=== PATIENT | female | born 1985 | race Caucasian/White ===

== ENCOUNTER 2022-02-22 12:30 | Emergency (ER) | payer SELFPAY ==
[~2022-02-22] VITALS: Ht 154.9 cm; Wt 68.2 kg
[~2022-02-22 12:30] MED LIST: ARIP400S3 IM; HYDR-4383 PO; MIRT30TA3 PO; NALT50TA PO; OMEP20CA15 PO; ONDA4TAB6 PO; TRAZ-251 PO; TRAZ-256 PO; VENL150C2 PO; ZIPR80CA2 PO
[2022-02-22 12:55] LABS: BASOPHILS % (AUTO) 0.3 % (0-1); EOSINOPHILS # (AUTO) 0.7 X10'3 (0-0.9); EOSINOPHILS % (AUTO) 5.4 % (0-6); HEMATOCRIT 37.7 % (35.0-45.0); HEMOGLOBIN 12.6 g/dl (12.0-16.0); LYMPHOCYTES # (AUTO) 2.7 X10'3 (1.1-4.8); LYMPHOCYTES % (AUTO) 22.1 % (21-51); MEAN CORPUSCULAR HEMOGLOBIN 29.6 PG (27.0-31.0); MEAN CORPUSCULAR HGB CONC 33.4 g/dL (33.0-36.5); MEAN CORPUSCULAR VOLUME 88.5 FL (78-98); MEAN PLATELET VOLUME 7.6 FL (7.4-10.4); MONOCYTES # (AUTO) 1.1 X10'3 (0-0.9); MONOCYTES % (AUTO) 8.5 % (2-12); NEUTROPHILS # (AUTO) 7.9 X10'3 (1.8-7.7); NEUTROPHILS % (AUTO) 63.7 % (42-75); PLATELET COUNT 355 X10'3 (140-440); RED BLOOD COUNT 4.26 X10'6 (4.20-5.60); WHITE BLOOD COUNT 12.3 X10'3 (4.5-11.0)
--- NOTE | 2022-02-22 13:05 | NUR ---
Received patient from main ED to bed #25. Pt presented animated, giggling to her bed.
[2022-02-22 13:06] LABS: ALANINE AMINOTRANSFERASE 22 U/L (12-78); ALBUMIN 3.4 G/DL (3.4-5.0); ALBUMIN/GLOBULIN RATIO 0.9 (1.1-1.5); ALKALINE PHOSPHATASE 91 IU/L (46-116); ANION GAP 9 (8-16); ASPARTATE AMINO TRANSFERASE 11 U/L (10-37); BILIRUBIN,TOTAL 0.2 MG/DL (0.1-1.0); BLOOD UREA NITROGEN 7 MG/DL (7-18); BUN/CREATININE RATIO 10.9 (6.6-38.0); CALCIUM 9.5 MG/DL (8.5-10.1); CHLORIDE 105 MMOL/L (99-107); CREATININE 0.64 MG/DL (0.40-0.90); GLUCOSE 88 MG/DL (70-104); POTASSIUM 4.3 MMOL/L (3.5-5.1); SODIUM 140 MMOL/L (135-145); TOTAL CARBON DIOXIDE 26.3 MMOL/L (24-32); TOTAL PROTEIN 7.3 G/DL (6.4-8.2); eGFR > 90 ML/MIN
[2022-02-22 13:14] LABS: ETHANOL < 0.010 GM/DL (0.0-0.010)
--- NOTE | 2022-02-22 14:30 | NUR ---
One on one assessment with patient. Patient was sitting on bed rapidly talking to herself. Pt presents delusional, tangential thought process. When asked what brought pt in pt stated "I'm delusional, angry, giving on life, I am insane," pt laughs inapproriately. Pt states "I am homeless, danger to other, danger to myself, I use drugs." Pt has no family support "they are unhealthy like me..., don't know where he is." "I think in rehab." Pt reports history of schizoaffective d/o, but "hasn't taken medications in a long time." Pt denies A/VH, "its only because of the drugs, that's what's doing this to me." "I just need to say no, but its hard when you don't have family support."
[2022-02-22] MEDS ORDERED: LORazepam 1 MG tablet PO ONE (14:50)
--- NOTE | 2022-02-22 15:05 | NUR ---
Pt resting comfortably, respirations even and unlabored.
[2022-02-22 15:08] LABS: CLARITY,URINE SLIGHTLY CLOUDY (Clear); COLOR,URINE YELLOW (Yellow); GLUCOSE, URINE NEGATIVE (Neg); KETONES,URINE NEGATIVE (Neg); LEUKOCYTE ESTERASE ,URINE NEGATIVE (Neg); NITRITES, URINE NEGATIVE (Neg); OCCULT BLOOD,URINE TRACE-INTACT (Neg); PH,URINE 6.5 (4.8-8.0); PROTEIN,URINE NEGATIVE (Neg); UROBILINOGEN,URINE 0.2 E.U/dL (0.2-1.0)
--- NOTE | 2022-02-22 15:10 | NUR ---
PT WAS ORINGALLY REGISTERED UNDER LUDY EVANS #[id number].
[2022-02-22 15:12] LABS: URINE AMPHETAMINE SCREEN POSITIVE (Neg); URINE BARBITUATE SCREEN NEGATIVE (Neg); URINE BENZODIAZEPINES SCREEN NEGATIVE (Neg); URINE CANNABINOID SCREEN POSITIVE (Neg); URINE COCAINE SCREEN NEGATIVE (Neg); URINE HCG NEGATIVE (NEG); URINE METHADONE SCREEN NEGATIVE (Neg); URINE OPIATE SCREEN NEGATIVE (Neg); URINE PHENCYCLIDINE SCREEN NEGATIVE (Neg)
[2022-02-22 15:19] LABS: UA COLLECTION TYPE CLN CATCH MIDSTREAM
[2022-02-22 15:20] LABS: MUCUS STRANDS FEW /LPF (Neg); SQUAMOUS EPITHELIAL CELL,UR MODERATE /LPF (FEW)
[2022-02-22 15:21] LABS: BACTERIA,URINE FEW /HPF (Neg); RBC,URINE 0-2 /HPF (0-2); WBC,URINE 0-4 /HPF (0-4)
--- NOTE | 2022-02-22 16:04 | NUR ---
Pt up to the bathroom, even, steady gait.
[2022-02-22 21:08] VITALS: BP 97/70
== END 2022-02-22 21:18 ==
LOC: ER 12:32
DX: R45.851 Suicidal ideations (principal); F25.9 Schizoaffective disorder, unspecified; F17.210 Nicotine dependence, cigarettes, uncomplicated; F15.10 Other stimulant abuse, uncomplicated; F12.10 Cannabis abuse, uncomplicated; Z59.00 Homelessness unspecified; Z56.0 Unemployment, unspecified; Z20.822 Contact with and (suspected) exposure to COVID-19
CPT/HCPCS: 36415; 80053; 80305; 80320; 81001; 81025; 84443; 85025; 87635; 99285; C9803

== ENCOUNTER 2022-03-06 18:52 | Emergency (ER) | payer MEDICAID ==
[~2022-03-06] VITALS: Ht 157.5 cm; Wt 75.0 kg
[~2022-03-06 18:52] MED LIST changes: -VENL150C2 PO; +VENL150C4 PO
[2022-03-06] MEDS ORDERED: LORazepam 1 MG tablet PO ONE (19:35)
[2022-03-06 19:50] LABS: BASOPHILS # (AUTO) 0.1 X10'3 (0-0.2); BASOPHILS % (AUTO) 0.5 % (0-1); EOSINOPHILS # (AUTO) 0.7 X10'3 (0-0.9); EOSINOPHILS % (AUTO) 5.1 % (0-6); HEMOGLOBIN 12.3 g/dl (12.0-16.0); LYMPHOCYTES # (AUTO) 3.1 X10'3 (1.1-4.8); LYMPHOCYTES % (AUTO) 21.6 % (21-51); MEAN CORPUSCULAR HEMOGLOBIN 30.2 PG (27.0-31.0); MEAN CORPUSCULAR HGB CONC 34.3 g/dL (33.0-36.5); MEAN PLATELET VOLUME 7.4 FL (7.4-10.4); MONOCYTES # (AUTO) 1.1 X10'3 (0-0.9); NEUTROPHILS # (AUTO) 9.3 X10'3 (1.8-7.7); NEUTROPHILS % (AUTO) 64.8 % (42-75); PLATELET COUNT 364 X10'3 (140-440); RED BLOOD COUNT 4.09 X10'6 (4.20-5.60); RED CELL DISTRIBUTION WIDTH 13.3 % (11.5-14.5); WHITE BLOOD COUNT 14.3 X10'3 (4.5-11.0)
[2022-03-06 20:15] LABS: ALANINE AMINOTRANSFERASE 33 U/L (12-78); ALBUMIN 3.5 G/DL (3.4-5.0); ALKALINE PHOSPHATASE 90 IU/L (46-116); ANION GAP 9 (8-16); ASPARTATE AMINO TRANSFERASE 25 U/L (10-37); BILIRUBIN,TOTAL 0.3 MG/DL (0.1-1.0); BLOOD UREA NITROGEN 9 MG/DL (7-18); CALCIUM 9.2 MG/DL (8.5-10.1); CHLORIDE 104 MMOL/L (99-107); CREATININE 0.75 MG/DL (0.40-0.90); GLUCOSE 95 MG/DL (70-104); POTASSIUM 3.7 MMOL/L (3.5-5.1); SODIUM 140 MMOL/L (135-145); TOTAL CARBON DIOXIDE 26.6 MMOL/L (24-32); TOTAL PROTEIN 6.9 G/DL (6.4-8.2); eGFR 87 ML/MIN
[2022-03-06 20:24] LABS: ETHANOL < 0.010 GM/DL (0.0-0.010)
--- NOTE | 2022-03-07 01:01 | NUR ---
ATTEMPTED TO GET URINE FROM PT. FIRST SHE FILLED THE URINE CUP WITH WATER, THEN SHE URINATED IN THE TOILET. WILL JENNA POSADA PT.
--- NOTE | 2022-03-07 04:20 | NUR ---
in and out cath performed. urine sent to lab
[2022-03-07 05:29] LABS: CLARITY,URINE CLEAR (Clear); COLOR,URINE YELLOW (Yellow); GLUCOSE, URINE NEGATIVE (Neg); KETONES,URINE NEGATIVE (Neg); LEUKOCYTE ESTERASE ,URINE NEGATIVE (Neg); NITRITES, URINE NEGATIVE (Neg); OCCULT BLOOD,URINE NEGATIVE (Neg); PH,URINE 7.5 (4.8-8.0); PROTEIN,URINE NEGATIVE (Neg); URINE HCG NEGATIVE (NEG); UROBILINOGEN,URINE 0.2 E.U/dL (0.2-1.0)
[2022-03-07 05:31] LABS: UA COLLECTION TYPE STRAIGHT CATH
[2022-03-07 05:49] LABS: URINE AMPHETAMINE SCREEN NEGATIVE (Neg); URINE BARBITUATE SCREEN NEGATIVE (Neg); URINE BENZODIAZEPINES SCREEN NEGATIVE (Neg); URINE CANNABINOID SCREEN NEGATIVE (Neg); URINE COCAINE SCREEN NEGATIVE (Neg); URINE METHADONE SCREEN NEGATIVE (Neg); URINE OPIATE SCREEN NEGATIVE (Neg); URINE PHENCYCLIDINE SCREEN NEGATIVE (Neg)
--- NOTE | 2022-03-07 06:25 | NUR ---
Patient moved from main to ED OF Room 21. Patient ambulatory, steady gait. No distress observed. Continue to monitor.
--- NOTE | 2022-03-07 08:20 | NUR ---
Patient eating lunch. No distress observed. Continue to monitor.
--- NOTE | 2022-03-07 09:18 | NUR ---
PACKET FAXED TO [facility]
--- NOTE | 2022-03-07 10:12 | NUR ---
Patient sleeping on left side. No distress observed. Continue to monitor.
[2022-03-07] MEDS ORDERED: PALI234D IM (11:14)
--- NOTE | 2022-03-07 11:36 | NUR ---
[facility], evaluating patient. Patient is calm and in no distress. Continue to monitor.
--- NOTE | 2022-03-07 12:23 | NUR ---
Patient eating lunch. No distress observed. Continue to monitor.
--- NOTE | 2022-03-07 14:34 | NUR ---
Pt continues to sleep. Registration is here to see the pt. Pt was cooperative with registration. Pt immediately went back to sleep.
--- NOTE | 2022-03-07 16:16 | NUR ---
Pt has been using the phone making plans for housing and taking care of her other needs. Pt reports she will discharge tomorrow.
--- NOTE | 2022-03-07 17:41 | NUR ---
Pt resting on her side on her bed. RR within normal range, even and unlabored. Will continue to monitor.
--- NOTE | 2022-03-07 19:17 | NUR ---
One to one with the patient to assess severity of MH symptoms. The patient stated that she was doing better and that she felt she could be safe to discharge tomorrow to the [facility]. She will follow up with [facility]. She denies A/V hallucinations. She denies pain.
--- NOTE | 2022-03-07 21:05 | NUR ---
The patient appears to be sleeping
--- NOTE | 2022-03-07 23:02 | NUR ---
The patient appears to be sleeping.
--- NOTE | 2022-03-08 00:01 | NUR ---
The patient appears to be sleeping
--- NOTE | 2022-03-08 01:03 | NUR ---
The patient appears to be sleeping
--- NOTE | 2022-03-08 01:59 | NUR ---
The patient appears to be sleeping
--- NOTE | 2022-03-08 03:07 | NUR ---
The patient appears to be sleeping
--- NOTE | 2022-03-08 04:10 | NUR ---
The patient appears to be sleeping
--- NOTE | 2022-03-08 05:35 | NUR ---
The patient appeared to have slept well throughout the night
[2022-03-08 06:00] VITALS: BP 94/51
--- NOTE | 2022-03-08 06:23 | NUR ---
Patient is sleeping on her left side. No distress observed. Patient will be [facility]. Continue to monitor.
--- NOTE | 2022-03-08 08:10 | NUR ---
Patient eating breakfast. No distress observed. Continue to monitor.
--- NOTE | 2022-03-08 09:35 | NUR ---
Met with patient in regards to substance use and to see if patient wanted any resources for treatment options. Patient isn't sure if she is ready for treatment or not. I gave patient [facility] number and my card in case she decides that she wants rehab.
== END 2022-03-08 10:10 | disposition home or self-care (01) ==
LOC: ER 18:53
DX: R45.851 Suicidal ideations (principal); Z20.822 Contact with and (suspected) exposure to COVID-19; F20.9 Schizophrenia, unspecified; F12.90 Cannabis use, unspecified, uncomplicated; F15.90 Other stimulant use, unspecified, uncomplicated; Z72.89 Other problems related to lifestyle; Z56.0 Unemployment, unspecified; Z59.00 Homelessness unspecified; Z79.899 Other long term (current) drug therapy
CPT/HCPCS: 36415; 80053; 80305; 80320; 81003; 81025; 84443; 85025; 87635; 99285; C9803

== ENCOUNTER 2022-03-13 15:46 | Emergency (ER) | payer MEDICAID ==
[~2022-03-13] VITALS: Ht 157.5 cm; Wt 75.0 kg
[~2022-03-13 15:46] MED LIST changes: -ARIP400S3 IM; -HYDR-4383 PO; -MIRT30TA3 PO; -NALT50TA PO; -OMEP20CA15 PO; -ONDA4TAB6 PO; +PALI234D IM; -TRAZ-251 PO; -TRAZ-256 PO; -VENL150C4 PO; -ZIPR80CA2 PO
[2022-03-13 15:58] VITALS: BP 111/64
[2022-03-13] MEDS ORDERED: IBUP-1986 PO (16:44)
[2022-03-13] MEDS ORDERED: ibuprofen tablet 400 MG TABLET PO ONE (16:45)
== END 2022-03-13 17:10 | disposition home or self-care (01) ==
LOC: ER 15:47
DX: S93.492A Sprain of other ligament of left ankle, initial encounter (principal); R53.1 Weakness; F12.90 Cannabis use, unspecified, uncomplicated; F15.90 Other stimulant use, unspecified, uncomplicated; Z59.00 Homelessness unspecified; Z56.0 Unemployment, unspecified; Z79.899 Other long term (current) drug therapy; Z72.89 Other problems related to lifestyle; X50.1XXA Overexertion from prolonged static or awkward postures, initial encounter; Y93.01 Activity, walking, marching and hiking; Y92.89 Other specified places as the place of occurrence of the external cause; Y99.8 Other external cause status
CPT/HCPCS: 29540; 73610; 99283

== ENCOUNTER 2022-04-04 21:07 | Emergency (ER) | payer MEDICAID ==
[~2022-04-04] VITALS: Ht 157.5 cm; Wt 75.0 kg
[~2022-04-04 21:07] MED LIST changes: +IBUP-1986 PO
[2022-04-04 21:49] LABS: BASOPHILS % (AUTO) 0.4 % (0-1); EOSINOPHILS # (AUTO) 0.4 X10'3 (0-0.9); EOSINOPHILS % (AUTO) 5.1 % (0-6); HEMATOCRIT 38.4 % (35.0-45.0); HEMOGLOBIN 12.9 g/dl (12.0-16.0); LYMPHOCYTES # (AUTO) 2.5 X10'3 (1.1-4.8); LYMPHOCYTES % (AUTO) 28.2 % (21-51); MEAN CORPUSCULAR HEMOGLOBIN 30.4 PG (27.0-31.0); MEAN CORPUSCULAR HGB CONC 33.7 g/dL (33.0-36.5); MEAN CORPUSCULAR VOLUME 90.3 FL (78-98); MEAN PLATELET VOLUME 7.3 FL (7.4-10.4); MONOCYTES # (AUTO) 0.7 X10'3 (0-0.9); MONOCYTES % (AUTO) 8.6 % (2-12); NEUTROPHILS % (AUTO) 57.7 % (42-75); PLATELET COUNT 364 X10'3 (140-440); RED BLOOD COUNT 4.25 X10'6 (4.20-5.60); RED CELL DISTRIBUTION WIDTH 14.5 % (11.5-14.5); WHITE BLOOD COUNT 8.7 X10'3 (4.5-11.0)
[2022-04-04 22:05] LABS: ALANINE AMINOTRANSFERASE 26 U/L (12-78); ALBUMIN 3.5 G/DL (3.4-5.0); ALKALINE PHOSPHATASE 93 IU/L (46-116); ANION GAP 8 (8-16); ASPARTATE AMINO TRANSFERASE 21 U/L (10-37); BILIRUBIN,TOTAL 0.2 MG/DL (0.1-1.0); BLOOD UREA NITROGEN 13 MG/DL (7-18); BUN/CREATININE RATIO 15.3 (6.6-38.0); CHLORIDE 106 MMOL/L (99-107); CREATININE 0.85 MG/DL (0.40-0.90); ETHANOL < 0.010 GM/DL (0.0-0.010); GLUCOSE 86 MG/DL (70-104); POTASSIUM 3.8 MMOL/L (3.5-5.1); SODIUM 141 MMOL/L (135-145); TOTAL CARBON DIOXIDE 26.6 MMOL/L (24-32); TOTAL PROTEIN 6.9 G/DL (6.4-8.2); eGFR 76 ML/MIN
[2022-04-04] MEDS ORDERED: NO HOME MEDS (22:14)
[2022-04-04 22:41] LABS: URINE HCG NEGATIVE (NEG)
[2022-04-04 22:52] LABS: URINE AMPHETAMINE SCREEN POSITIVE (Neg); URINE BARBITUATE SCREEN NEGATIVE (Neg); URINE BENZODIAZEPINES SCREEN NEGATIVE (Neg); URINE CANNABINOID SCREEN NEGATIVE (Neg); URINE COCAINE SCREEN NEGATIVE (Neg); URINE METHADONE SCREEN NEGATIVE (Neg); URINE OPIATE SCREEN NEGATIVE (Neg); URINE PHENCYCLIDINE SCREEN NEGATIVE (Neg)
[2022-04-05] MEDS ORDERED: nicotine 21mg patch - 24 hr TD ONE (08:45)
--- NOTE | 2022-04-05 08:58 | NUR ---
PATIENT ATTEMPTED TO LEAVE UNIT AND WAS TAKEN BACK TO HER ROOM. PATIENT STATES SHE WANTS TO HAVE A CIGARETTE AND STARTED TO YELL AND CURSE AT STAFF. ATTEMPTING TO CALM PATIENT DOWN VERBALLY, WITH NO RESULTS. NICOTINE PATCH ORDERED FOR PATIENT.
[2022-04-05] MEDS ORDERED: LORazepam 2 mg/ml vial IM ONE (09:05)
[2022-04-05] MEDS ORDERED: haloperidol lactate 5mg/ml inj IM ONE (09:05)
[2022-04-05] MEDS: haloperidol lactate 5mg/ml inj IM ONE ×2 (09:30→09:35)
--- NOTE | 2022-04-05 18:32 | NUR ---
Assumed care of patient. Patient just finished dinner tray. No needs at this time.
--- NOTE | 2022-04-06 06:15 | NUR ---
Report from L[facility]ON Daugherty. Pt sleeping, no apparent distress or needs at this time.
[2022-04-06] MEDS ORDERED: nicotine 21mg patch - 24 hr TD ONE (10:15)
--- NOTE | 2022-04-06 10:39 | NUR ---
Pt still asleep. breathing, no apparent distress.
[2022-04-06 11:01] VITALS: BP 104/69
--- NOTE | 2022-04-06 12:08 | NUR ---
Lunch at bedside. Pt calm and cooperative, no issues.
--- NOTE | 2022-04-06 12:38 | NUR ---
Lab needs new UA to run the urine test. Their last sample is too old
--- NOTE | 2022-04-06 12:42 | NUR ---
Pt sleeping, will wait until pt is awake for UA.
[2022-04-06 13:43] LABS: URINE AMPHETAMINE SCREEN POSITIVE (Neg); URINE BARBITUATE SCREEN NEGATIVE (Neg); URINE BENZODIAZEPINES SCREEN NEGATIVE (Neg); URINE CANNABINOID SCREEN NEGATIVE (Neg); URINE COCAINE SCREEN NEGATIVE (Neg); URINE METHADONE SCREEN NEGATIVE (Neg); URINE OPIATE SCREEN NEGATIVE (Neg); URINE PHENCYCLIDINE SCREEN NEGATIVE (Neg)
--- NOTE | 2022-04-06 13:56 | NUR ---
UA still pending. Called lab. 10min until complete. Will call back and fax to [facility]
[2022-04-06 13:58] LABS: CLARITY,URINE CLOUDY (Clear); COLOR,URINE YELLOW (Yellow); GLUCOSE, URINE NEGATIVE (Neg); KETONES,URINE NEGATIVE (Neg); LEUKOCYTE ESTERASE ,URINE NEGATIVE (Neg); NITRITES, URINE NEGATIVE (Neg); OCCULT BLOOD,URINE NEGATIVE (Neg); PROTEIN,URINE NEGATIVE (Neg); UROBILINOGEN,URINE 0.2 E.U/dL (0.2-1.0)
[2022-04-06 13:59] LABS: UA COLLECTION TYPE NON-SPECIFIED
[2022-04-06 14:03] LABS: CAL OXALATE CRYSTALS 3+ /HPF (NEGATIVE)
[2022-04-06 14:04] LABS: BACTERIA,URINE FEW /HPF (Neg); MUCUS STRANDS NONE SEEN /LPF (Neg); RBC,URINE NONE SEEN /HPF (0-2); SQUAMOUS EPITHELIAL CELL,UR MODERATE /LPF (FEW); WBC,URINE 0-4 /HPF (0-4)
--- NOTE | 2022-04-06 14:45 | NUR ---
Received patient into room 27, given green top and sweats to change, patient calm no s/sx of distress.
--- NOTE | 2022-04-06 15:30 | NUR ---
received call from 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 labs faxed over.
--- NOTE | 2022-04-06 16:00 | NUR ---
received call [facility] will be picking up patient shortly.
== END 2022-04-06 16:18 ==
LOC: ER 21:08
DX: R45.850 Homicidal ideations (principal); Z20.822 Contact with and (suspected) exposure to COVID-19; R45.1 Restlessness and agitation; F20.9 Schizophrenia, unspecified; F12.90 Cannabis use, unspecified, uncomplicated; F15.90 Other stimulant use, unspecified, uncomplicated; Z72.89 Other problems related to lifestyle; Z56.0 Unemployment, unspecified; Z59.00 Homelessness unspecified
CPT/HCPCS: 36415; 80053; 80305; 80320; 81001; 81025; 84443; 85025; 87635; 96372; 99285; C9803; J1630